=== PATIENT | female | born 1980 | race Caucasian/White ===

== ENCOUNTER 2018-08-12 12:33 | Day surgery (SDC) | payer OTHER ==
[~2018-08-12] VITALS: Ht 154.9 cm; Wt 100.2 kg
[2018-08-12] MEDS ORDERED: BUPIVACAINE/PF 0.5% ONE (12:44)
[2018-08-12] MEDS ORDERED: LACTATED RINGERS 1,000 ML IV SCH (12:56)
[2018-08-12 13:04] VITALS: BP 117/84
[2018-08-12] MEDS ORDERED: TRAM50TA2 PO (13:11)
[2018-08-12] MEDS ORDERED: ACET-1770 PO (13:11)
[2018-08-12] MEDS ORDERED: DIME1CAP PO (13:11)
[2018-08-12] MEDS ORDERED: FENTANYL PF 250 MCG/5ML ONE (13:11)
[2018-08-12] MEDS ORDERED: MIDAZOLAM 1 MG/ML, 2ML ONE (13:11)
[2018-08-12] MEDS ORDERED: ZOLP10TA PO (13:21)
[2018-08-12] MEDS ORDERED: PLEASE ENTER HEIGHT AND WEIGHT MC SCH (13:30)
[2018-08-12] MEDS ORDERED: PLEASE ENTER ALLERGIES MC SCH (13:30)
[2018-08-12 13:44] LABS: HCG UR SG 1.035 (1.003-1.030)
[2018-08-12] MEDS ORDERED: CEFAZOLIN 1,000 MG ONE (13:44)
[2018-08-12] MEDS ORDERED: ONDANSETRON 2MG/ML, 2ML ONE (13:44)
[2018-08-12] MEDS ORDERED: PROPOFOL 10 MG/ML, 20ML ONE (13:44)
[2018-08-12] MEDS ORDERED: OXYcodone 5 MG/5 ML ORAL.SOL UDC PO PRN (14:00)
[2018-08-12] MEDS ORDERED: ONDANSETRON ODT 8 MG PO PRN (14:00)
[2018-08-12] MEDS ORDERED: hydrALAzine 20 MG/ML, 1ML IV PRN (14:00)
[2018-08-12] MEDS ORDERED: ONDANSETRON 2MG/ML, 2ML IV PRN (14:00)
[2018-08-12] MEDS ORDERED: DIAZEPAM 5 MG/ML, 2ML IVPush PRN (14:00)
[2018-08-12] MEDS ORDERED: ACETAMINOPHEN 325 MG TABLET PO PRN (14:00)
[2018-08-12] MEDS ORDERED: LABETALOL 5MG/ML, 20ML IV PRN (14:00)
[2018-08-12] MEDS ORDERED: MEPERIDINE/PF 25MG/0.5ML IVPush PRN (14:00)
[2018-08-12] MEDS ORDERED: FENTANYL PF 100 MCG/2ML ONE ×2 (14:52→15:49)
[2018-08-12] MEDS ORDERED: ACETAMINOPHEN 650 MG/20.3 ML UDC ONE (15:48)
[2018-08-12] MEDS ORDERED: OXYcodone 5 MG/5 ML ORAL.SOL UDC ONE (15:49)
[2018-08-12] MEDS: FENTANYL PF 100 MCG/2ML IV PRN ×2 (15:56→16:20)
[2018-08-12] MEDS ORDERED: DIPHENHYDRAMINE 50 MG/ML, 1ML IVPush ONE (16:00)
[2018-08-12] MEDS ORDERED: DIPHENHYDRAMINE 50 MG/ML, 1ML ONE (16:02)
[2018-08-12] MEDS ORDERED: HYDROmorphone 2 MG/ML, 1ML ONE (16:16)
[2018-08-12] MEDS: HYDROmorphone 2 MG/ML, 1ML IVPush PRN ×2 (16:19→16:36)
== END 2018-08-12 18:35 | disposition home or self-care (01) ==
LOC: OUT 12:33
PROVIDERS: ATTEND Orthopaedic Surgery
DX: S52.571A Other intraarticular fracture of lower end of right radius, initial encounter for closed fracture (principal); G56.01 Carpal tunnel syndrome, right upper limb; F17.210 Nicotine dependence, cigarettes, uncomplicated; E66.01 Morbid (severe) obesity due to excess calories; Z68.41 Body mass index [BMI] 40.0-44.9, adult; X58.XXXA Exposure to other specified factors, initial encounter; Y93.89 Activity, other specified; Y92.89 Other specified places as the place of occurrence of the external cause; Y99.8 Other external cause status
CPT/HCPCS: 25609; 64721; 73110; 76000; 81025; C1713; C1776; J0690; J1170; J1200; J2250; J2405; J2704; J3010; J3490; J7120

== ENCOUNTER → 2018-10-21 | Outpatient (CLI) | payer OTHER ==
[~2018-10-21] MED LIST: ACET-1770 PO; DIME1CAP PO; TRAM50TA2 PO; ZOLP10TA PO
[2018-10-21 15:20] LABS: BASOPHILS # (AUTO) 0.02 x10^3/uL (0-0.1); BASOPHILS % (AUTO) 0 % (0-1); EOSINOPHILS # (AUTO) 0.14 x10^3/uL (0-0.4); EOSINOPHILS % (AUTO) 3 % (1-7); LYMPHOCYTES # (AUTO) 1.51 x10^3/uL (1-3.4); LYMPHOCYTES % (AUTO) 30 % (22-44); MD NO; MEAN CORPUSCULAR HEMOGLOBIN 31.7 pg (27.0-34.8); MEAN CORPUSCULAR HGB CONC 34.8 g/dL (32.4-35.8); MEAN CORPUSCULAR VOLUME 90.9 fL (80-100); MEAN PLATELET VOLUME 7.9 fL (7.4-10.4); MONOCYTES # (AUTO) 0.51 x10^3/uL (0.2-0.8); MONOCYTES % (AUTO) 10 % (2-9); NEUTROPHILS # (AUTO) 2.89 x10^3/uL (1.8-6.8); NEUTROPHILS % (AUTO) 57 % (42-75); PLATELET COUNT 346 x10^3/uL (130-400); RED BLOOD COUNT 4.85 x10^6/uL (3.82-5.3); RED CELL DISTRIBUTION WIDTH 13.8 % (9.6-15.2)
== END | disposition home or self-care (01) ==
LOC: CFH 10:10
PROVIDERS: ATTEND Psychiatry & Neurology Neurology
DX: G35 Multiple sclerosis (principal); E66.01 Morbid (severe) obesity due to excess calories; Z68.41 Body mass index [BMI] 40.0-44.9, adult; Z87.891 Personal history of nicotine dependence
CPT/HCPCS: 36415; 82306; 85025